=== PATIENT | male | born 1995 | race Caucasian/White ===

== ENCOUNTER 2017-06-07 14:41 | Emergency (ER) | payer SELFPAY ==
[2017-06-07 14:48] VITALS: BP 132/68
[2017-06-10 13:14] LABS: RAPID PLASMA REAGIN Reactive (Non Reactive)
== END 2017-06-07 16:11 | disposition home or self-care (01) ==
LOC: ED 14:41
PROVIDERS: Emergency Medicine
DX: A53.9 Syphilis, unspecified (principal)
CPT/HCPCS: 36415; J0561